=== PATIENT | male | born 1995 | race Caucasian/White ===

== ENCOUNTER 2024-03-16 08:04 | Emergency (ER) | payer MEDICAID, OTHER, SELFPAY ==
[2024-03-16 08:06] VITALS: BP 136/85
--- NOTE | 2024-03-16 08:41 | ED.SKININJ ---
HPI-Injury
General
Chief Complaint: Skin Problem
Source: patient
Exam Limitations: none
Time Seen by Provider: 03/16/24 08:14
History of Present Illness-Injury
Initial Injury comments:
28-year-old male presents with worsening swelling and pain to the left arm starting about 3 days ago. He thought to have cellulitis of the left upper arm and was seen by urgent care. He has had 6 total doses of clindamycin however he notes it is
more swollen. He denies measurable fever. He is not a diabetic.
Phy Exam
Physical Exam
Physical Exam:
General: Well-appearing male no acute respiratory distress
HEENT: Normocephalic
Skin: Erythema fluctuance induration noted over the left lateral distal upper arm just above the elbow. This is tender without drainage no lymphangitic streaking total area of fluctuance is about 3 cm in diameter
Musculoskeletal exam: Good range of motion left elbow. Elbow motion is nonpainful.
Vascular wrist
Course
Vital Signs
Initial and Last Documented VS:
Initial Vital Signs
Temp Pulse Resp BP Pulse Ox
98.5 F 77 18 136/85 98
03/16/24 08:06 03/16/24 08:06 03/16/24 08:06 03/16/24 08:06 03/16/24 08:06
Last Documented Vital Signs
Temp Pulse Resp BP Pulse Ox
98.5 F 77 18 136/85 98
03/16/24 08:06 03/16/24 08:06 03/16/24 08:06 03/16/24 08:06 03/16/24 08:06
MDM/Problems Addressed
Differential Diagnosis Includes:
Left elbow redness and swelling. Consider cellulitis versus abscess
More concern clinically about abscess given the fluctuance. Discussed treatment options with patient. We opted for incision and drainage. The area was sterilely prepped and anesthetized with 1% lidocaine with epinephrine. An 11 blade scalpel was
used to make an incision. Immediately upon making the incision there is a large amount of purulent material expressed from the wound. Needle drivers were used to bluntly dissect into the wound and break up loculations. Significant amount more of
purulence was obtained. This was then followed by bloody return. This was irrigated with saline and dressed. Patient will continue clindamycin as he started it. Return precautions given. Stable for discharge
*Critical Care Note
Total Time (30-74mins, 75-104mins- exclusive of procedures): Not Applicable
ED Attending Note
-
Portions of this chart may have been created with voice recognition software.� Occasional wrong word or��sound alike� substitutions may have occurred due to the inherent limitations of voice recognition software.
Discharge Plan
Departure
Patient Disposition: Home (Routine Discharge)
Date of Disposition: 03/16/24
Time of Disposition: 08:57
Patient with high blood pressure during this ER visit?: No
Discharge Problem:
Abscess
Instructions: Skin Abscess
Activity Restrictions/Additional Instructions:
Keep covered. Change dressing as needed. Take antibiotics as directed. Return here if worse.
Interventions
Interventions:
*Risk Screen - Suicide Last Done: 03/16/24 08:06
*General Assessment Last Done: 03/16/24 08:06
*Neglect/Abuse Screening Last Done: 03/16/24 08:06
*ED COVID-19 Vaccine History Last Done: 03/16/24 08:06
Discharge Date and Time
Print Language: KHMER
== END 2024-03-16 09:14 | disposition home or self-care (01) ==
LOC: EMR 08:04
PROVIDERS: EMERGENCY PHYSICIAN Emergency Medicine; FAMILY PHYSICIAN Internal Medicine
DX: L02.414 Cutaneous abscess of left upper limb (principal)
CPT/HCPCS: 99283; 10060